=== PATIENT | female | born 1975 | race Caucasian/White ===

== ENCOUNTER → 2020-09-09 | Outpatient (CLI) | payer BC, OTHER ==
[~2020-09-09] MED LIST: ANTIVERT 25MG T25 MG PO; IBUPROFEN400 MG PO; SUDAFED 30 MG T30 MG PO; ZOFRAN4 MG PO
== END ==
LOC: MAMO 12:50
DX: Z12.31 Encounter for screening mammogram for malignant neoplasm of breast (principal)
CPT/HCPCS: 77063; 77067

== ENCOUNTER → 2020-10-20 | Outpatient (CLI) | payer BC | LOC: MAMO 13:20 | DX: R92.8 Other abnormal and inconclusive findings on diagnostic imaging of breast (principal); N63.0 Unspecified lump in unspecified breast | CPT/HCPCS: 76641-LT; 76641-RT; 77066; G0279 ==